=== PATIENT | female | born 1955 | race Caucasian/White ===

== ENCOUNTER 2023-12-28 05:01 | Observation (INO) | payer MEDICARE, OTHER ==
[2023-12-23 10:55] LABS: BASOPHILS # (AUTO) 0.03 K/uL (0.00-0.20); BASOPHILS % (AUTO) 0.5 % (0.0-5.0); EOSINOPHILS # (AUTO) 0.09 K/uL (0.00-0.70); EOSINOPHILS % (AUTO) 1.4 % (0.0-8.0); HEMATOCRIT 42.7 % (36-48); IMMATURE GRANULOCYTE ABSOLUTE 0.02 K/uL (0-1); MEAN CORPUSCULAR HEMOGLOBIN 28.3 pg (27.0-33.0); MEAN CORPUSCULAR HGB CONC 32.6 g/dL (32.0-36.0); MEAN CORPUSCULAR VOLUME 86.8 fL (79-99); MONOCYTES # (AUTO) 0.4 K/uL (0.1-1.0); MONOCYTES % (AUTO) 5.6 % (3.0-13.0); NEUTROPHILS # (AUTO) 2.9 K/uL (1.8-7.7); NEUTROPHILS % (AUTO) 45.2 % (40.0-77.0); PLATELET COUNT (AUTO) 200 K/uL (130-400); RED BLOOD CELL COUNT(AUTO) 4.92 MIL/uL (4.00-5.50); RED CELL DISTRIBUTION WIDTH 12.9 % (11.0-15.5); WHITE BLOOD COUNT (AUTO) 6.4 K/uL (4.8-10.8)
[2023-12-23 11:05] LABS: INR <= 0.93 (0.85-1.15); PROTHROMBIN TIME 10.7 SEC (9.6-11.6)
[2023-12-23 11:06] LABS: PARTIAL THROMBOPLASTIN TIME 29.2 SEC (26.3-35.5)
[2023-12-23 11:24] LABS: BILIRUBIN,TOTAL 0.5 mg/dL (0.2-1.0); CREATININE 0.8 mg/dL (0.5-1.5); POTASSIUM 4.9 mmol/L (3.5-5.1); TOTAL PROTEIN, SERUM 7.5 g/dL (6.0-8.3)
[2023-12-23 11:46] VITALS: BP 165/66; PULSE 59; RESP 14
[2023-12-28] VITALS (25 sets, daily range): BP systolic 130–154; BP diastolic 51–73; PULSE 55–86; RESP 14–20; O2SAT 98
[~2023-12-28] VITALS: Ht 172.7 cm; Wt 104.1 kg
[~2023-12-28 05:01] MED LIST: ESTR10TA4 VG; LEVO100C4 PO; LOSA50TA64 PO; MELO-108 PO; NYSTATIN TP
[2023-12-28] MEDS ORDERED: CLINDAMYCIN IVPB 900MG/50ML 0 ML IV ONE (06:06)
[2023-12-28] MEDS ORDERED: LACTATED RINGERS 1000ML 1,000 ML IV ONE (06:07)
[2023-12-28] MEDS ORDERED: CEFAZOLIN SODIUM 2 GM VIAL ONE (06:38)
[2023-12-28] MEDS ORDERED: 0.9%NACL 48.45 ML, ROPIVACAINE 0.5% 49.25ML, EPINEPH 0.5MG KETOROLAC 30MG,CLONIDINE 80MCG IV PRN ×5 (07:00)
[2023-12-28] MEDS ORDERED: CEFAZOLIN SODIUM 1 GM VIAL ONE ×2 (11:21→14:23)
[2023-12-28] MEDS ORDERED: GENTAMICIN SULFATE 80 MG/2 ML VIAL ONE ×2 (11:21→14:24)
[2023-12-28] MEDS ORDERED: TRANEXAMIC ACID 1000MG/10ML ONE (11:22)
[2023-12-28] MEDS ORDERED: MIDAZOLAM HCL 1 MG/ML 2ML VIAL ONE (11:25)
[2023-12-28] MEDS ORDERED: LIDOCAINE PF 100MG/5ML (2%) SYRINGE 5ML ONE (12:28)
[2023-12-28] MEDS ORDERED: PROPOFOL 10 MG/ML 20ML VIAL IV ONE (12:29)
[2023-12-28] MEDS ORDERED: ROCURONIUM BROMIDE 10MG/1ML 5ML VL ONE ×2 (12:29→13:16)
[2023-12-28] MEDS ORDERED: FENTANYL CITRATE PF 50 MCG/1 ML 2ML VIAL ONE ×4 (12:30→16:02)
[2023-12-28] MEDS ORDERED: DEXAMETHASONE SOD PHOSPHATE 10MG/ML 1ML VIAL ONE (13:09)
[2023-12-28] MEDS ORDERED: ONDANSETRON 4MG INJ ONE ×2 (13:09→15:26)
[2023-12-28] MEDS ORDERED: CEFAZOLIN SODIUM 3 GM VIAL IVPB ONE (13:25)
[2023-12-28] MEDS ORDERED: TRANEXAMIC ACID 1000MG/10ML IV ONE ×2 (13:35→14:13)
[2023-12-28] MEDS ORDERED: CEFAZOLIN SODIUM 2 GM VIAL IJ ONE (14:10)
[2023-12-28] MEDS ORDERED: GENTAMICIN SULFATE 80 MG/2 ML VIAL TP ONE (14:10)
[2023-12-28] MEDS ORDERED: GLYCOPYRROLATE 0.2 MG/ML 5 ML VIAL ONE (14:32)
[2023-12-28] MEDS ORDERED: NEOSTIGMINE METHYLSULFATE 1MG/ML IV ONE (14:32)
[2023-12-28] MEDS ORDERED: MEPERIDINE-PF 25 MG/ML SYG ONE ×2 (15:26→15:38)
[2023-12-28] MEDS ORDERED: BENZOCAINE/MENTH/CETYLPYRD CL 1 EACH LOZENGE MM PRN (22:00)
[2023-12-28] MEDS ORDERED: ACETAMINOPHEN 325 MG TAB PO PRN (22:00)
[2023-12-28] MEDS ORDERED: WARFARIN SODIUM 5 MG TAB PO SCH (22:00)
[2023-12-28] MEDS ORDERED: ZINC OXIDE OINT 60GM TUBE TP PRN (22:00)
[2023-12-28] MEDS ORDERED: LACTULOSE 20 GM/30 ML UDCUP PO PRN (22:00)
[2023-12-28] MEDS ORDERED: HOME MEDICATION 1 EACH MISC SCH (22:00)
[2023-12-28] MEDS ORDERED: DiphenhydrAMINE HCL 50 MG/ML VIAL IM PRN (22:00)
[2023-12-28] MEDS ORDERED: DIPHENOXYLATE HCL/ATROPINE 2.5/0.025 MG TAB PO PRN (22:00)
[2023-12-28] MEDS ORDERED: ACETAMINOPHEN 325 MG TAB PO SCH (22:00)
[2023-12-28] MEDS ORDERED: ONDANSETRON 4MG INJ IVP PRN (22:00)
[2023-12-28] MEDS ORDERED: DIPHENHYDRAMINE HCL 25 MG CAPSULE PO SCH (22:00)
[2023-12-28] MEDS ORDERED: DIPHENHYDRAMINE HCL 25 MG CAPSULE PO PRN (22:00)
[2023-12-28] MEDS ORDERED: MAG/ALUM/SIMETH 30 ML UDCUP PO PRN (22:00)
[2023-12-28] MEDS ORDERED: HYDROMORPH /0.9% NACL/PF PCA 50 ML IV PRN (22:30)
[2023-12-29] MEDS: 0.9%NACL 1000ML 1,000 ML IV SCH ×2 (01:56→08:00)
[2023-12-29 04:30] VITALS: BP 121/50; PULSE 71; RESP 18
[2023-12-29 05:31] LABS: HEMATOCRIT 33.6 % (36-48); MEAN CORPUSCULAR HEMOGLOBIN 27.9 pg (27.0-33.0); MEAN CORPUSCULAR HGB CONC 32.1 g/dL (32.0-36.0); MEAN CORPUSCULAR VOLUME 86.8 fL (79-99); RED BLOOD CELL COUNT(AUTO) 3.87 MIL/uL (4.00-5.50); RED CELL DISTRIBUTION WIDTH 13.2 % (11.0-15.5); WHITE BLOOD COUNT (AUTO) 10.7 K/uL (4.8-10.8)
[2023-12-29 05:39] LABS: PROTHROMBIN TIME 11.6 SEC (9.6-11.6)
[2023-12-29 05:46] LABS: CREATININE 0.7 mg/dL (0.5-1.5); POTASSIUM 4.2 mmol/L (3.5-5.1)
[2023-12-29 07:31] VITALS: BP 111/56; PULSE 90; RESP 18
[2023-12-29 09:00] VITALS: O2SAT 93
[2023-12-29] MEDS ORDERED: LOSARTAN 50 MG TABLET PO SCH (09:00)
[2023-12-29] MEDS ORDERED: LEVOTHYROXINE 100 MCG TABLET PO SCH (09:00)
[2023-12-29] MEDS: HOME MEDICATION 1 EACH TP SCH ×2 (09:00→14:00)
[2023-12-29 11:46] VITALS: BP 110/76; PULSE 80; RESP 20
[2023-12-29 16:18] VITALS: BP 102/43; PULSE 71; RESP 16
== END 2023-12-29 18:45 | disposition home or self-care (01) ==
LOC: DAH 05:01 → DAHIP 05:02 → DAH 05:02 → 4DH 20:35
PROVIDERS: ADMIT Orthopaedic Surgery; ATTEND Orthopaedic Surgery
DX: M17.11 Unilateral primary osteoarthritis, right knee (principal); E03.9 Hypothyroidism, unspecified; E66.9 Obesity, unspecified; I10 Essential (primary) hypertension; K21.9 Gastro-esophageal reflux disease without esophagitis; Z68.34 Body mass index [BMI] 34.0-34.9, adult; Z86.2 Personal history of diseases of the blood and blood-forming organs and certain disorders involving the immune mechanism; Z88.5 Allergy status to narcotic agent; Z88.6 Allergy status to analgesic agent; Z90.710 Acquired absence of both cervix and uterus
CPT/HCPCS: 80053; 85025; 85610 ×2; 85730; 36415 ×2; 93005; 87641; 27447; 96365; 97161; 97012; 97530 ×7; 96366; 80048; 85027; 97116 ×2; A6260; G0378 ×27; G0379; A4510; A4223 ×2; A4600; A4663; J7120 ×2; A4215 ×2; A4649 ×4; J0690 ×5; J3010 ×4; J3490 ×6; J1100; J2001; J1580 ×3; J2250; J2704; J2405 ×2; J2710; J2175 ×2; A6223; A4930; C1763 ×2; C1776; A4213; A4222; A4221; A4216; A6450; J7030